=== PATIENT | male | born 1950 | race Caucasian/White ===

== ENCOUNTER 2018-12-03 19:24 | Inpatient (IN) | payer BC ==
[~2018-12-03] VITALS: Ht 177.8 cm; Wt 97.5 kg
[~2018-12-03 19:24] MED LIST: ADULT LOW DOSE81 MG PO; ADVAIR 250-501 EACH IH; AMLODIPINE-BEN1 EAC3 PO; ANDROGEL75 GM TD; BD ULTRA-FINE1 EAC2 MC; CALCIUM; CATAPRESS3 TP; CATAPRESS3 TRANSDERM; CLARITIN10 M2 PO; CLONAZEPAM 0.50.5 M1 PO; CLONAZEPAM 1 MG1 M1 PO; COMBIVENT INH; FERROUS GLUCON325 M4; FIBER CHOICE1 EACH; FIBER GUMMIES1 EACH PO; FIBERCON625 M1 PO; FLONASE 0.05%50 MCG NS; FUROSEMIDE 40 M40 M1 PO; GLUCOPHAGE1000 MG PO; GLYBURIDE 5 MG T5 MG PO; HUMALOG100 UNIT/1 SUBQ; HYDROCODON-ACE1 EACH PO; IRON PO; JANUVIA100 MG PO; KAPVAY0.1 MG PO; KEFLEX500 MG; LANTUSSOLASTAR SQ; MINOCYCLINE HC100 M2; MOM; MUCINEX600 MG PO; MULTIVITAMINS PO; NEXIUM40 MG PO; PERCOCET 5-3251 EACH; POTASSIUM99 M1; PREDNISONE 10 M10 MG PO; PROAIR HFA8.5 GM INH; SIMVASTATIN40 MG PO; SINGULAIR 10 MG10 M1 PO; SUPER B COMPLE1 EAC2 PO; SYMBICORT160 MCG/4. INH; TAMSULOSIN HCL0.4 MG PO; TERBINAFINE; TRAZODONE 150150 M1 PO; TYLENOL325 MG PO; VITAMIN D-32000 UNIT; VITAMIN D-32000 UNIT PO; ZPAK PO; [UNRECOGNIZED DRUG - OTHER]
[2018-12-03 19:32] VITALS: BP 134/61
[2018-12-03 19:48] LABS: ABSOLUTE EOSINOPHILS 0.2 thou/uL (0.0-0.7); ABSOLUTE LYMPHOCYTES 1.4 thou/uL (0.8-5.3); ABSOLUTE MONOCYTES 0.9 thou/uL (0.0-1.2); BASOPHILS 0.5 %; EOSINOPHILS 2.9 %; HEMATOCRIT 35.4 % (42.0-52.0); HEMOGLOBIN 12.2 gm/dL (14.0-18.0); LYMPHOCYTES 18.2 %; MCH 31.4 pg (26.0-34.0); MCHC 34.5 g/dL (28.0-37.0); MCV 91.1 fL (80.0-100.0); MONOCYTES 11.5 %; MPV 8.5 fl. (7.2-11.1); NUCLEATED RBCS 0 /100WBC; PLATELET COUNT* 181 thou/uL (150-400); POLYS 66.9 %; RBC 3.88 mil/uL (4.50-6.00); RDW-CV 14.9 % (10.5-14.5); WBC 7.5 thou/uL (4.0-11.0)
[2018-12-03] MEDS ORDERED: CLONIDINE HCL0.3 M3 TRANSDERM (19:48)
[2018-12-03] MEDS ORDERED: PROTONIX40 M1 PO (19:48)
[2018-12-03] MEDS ORDERED: COMBIVENT INH (19:49)
[2018-12-03] MEDS ORDERED: TRAZODONE HCL100 MG PO (19:49)
[2018-12-03] MEDS ORDERED: SYNTHROID50 MCG PO (19:50)
[2018-12-03] MEDS ORDERED: FISH OIL 1,001000 M2 PO (19:50)
[2018-12-03] MEDS ORDERED: COREG25 MG PO (19:50)
[2018-12-03 20:00] LABS: INR 0.9; PROTIME 9.7 Seconds (9.20-11.50)
[2018-12-03 20:02] LABS: BE 1.3 mmol/L (-2 to +3); PCO2 44.4 mmHg (35.0-45.0); PO2 76.7 mmHg (75.0-100.0); pH 7.394 (7.340-7.450)
[2018-12-03 20:06] LABS: ANION GAP 5 mmol/L (7-16); BUN 23 mg/dL (7-18); CALCIUM 8.7 mg/dL (8.5-10.1); CHLORIDE 104 mmol/L (98-107); CO2 31 mmol/L (21-32); CREATININE 1.4 mg/dL (0.6-1.3); GLUCOSE 243 mg/dL (70-99); POTASSIUM 4.5 mmol/L (3.5-5.1); SODIUM 140 mmol/L (136-145); TROPONIN-I LEVEL <0.06 ng/mL (<0.06)
[2018-12-03 20:08] LABS: ALBUMIN 2.6 g/dL (3.4-5.0); ALKALINE PHOSPHATASE 56 U/L (46-116); NT-PRO BRAIN NAT PEPTIDE 486 pg/mL (<300); SGOT 25 U/L (15-37); SGPT 62 U/L (30-65); TOTAL BILIRUBIN 0.5 mg/dL (<0.1-1.0); TOTAL PROTEIN 6.8 g/dL (6.4-8.2)
[2018-12-03 21:15] VITALS: BP 140/70
[2018-12-03 21:50] VITALS: BP 142/71
[2018-12-03] MEDS ORDERED: IRON325 PO (22:49)
[2018-12-03] MEDS ORDERED: POTASSIUM20 PO (22:50)
[2018-12-03 23:34] LABS: URINE BILIRUBIN NEGATIVE (Negative); URINE BLOOD NEGATIVE (Negative); URINE CLARITY CLEAR; URINE COLOR YELLOW; URINE GLUCOSE-RANDOM TRACE (Negative); URINE KETONES NEGATIVE (Negative); URINE LEUKOCYTES-REFLEX NEGATIVE (Negative); URINE NITRITE-REFLEX NEGATIVE (Negative); URINE PROTEIN NEGATIVE (Negative); URINE SPECIFIC GRAVITY 1.015 (1.005-1.030)
[2018-12-04] VITALS: BP 142/67
--- NOTE | 2018-12-04 03:34 | NUR ---
PT ARRIVED TO ROOM 211 AT 2145 STRAIGHT AFTER CTA OF CHEST FROM ER. ASSESSMENT COMPLETED CHARTED. ABLE TO MAKE NEEDS KNOWN. NO C/O PAIN OR DISCOMFORT. PUT HEART MONITOR ON, SET UP EXTENDED TUBING FOR OXYGEN, COLLECTED UA AND MRSA SWAB, PT WANTED TO SLEEP IN RECLINER LIKE HE DOES AT HOME. UP AD CONSTANCE IN ROOM. PULSE OX ON TONIGHT FOR SLEEP STUDY. IV IN LEFT HAND AND RIGHT AC FLUSH WITH MINIMAL ISSUES. PT IS RESTING AT THIS TIME. PAPERWORK COMPLETED. WILL CONTINUE TO MONITOR.
[2018-12-04 04:00] VITALS: BP 159/76
--- NOTE | 2018-12-04 05:10 | NUR ---
I STARTED NOC OX AND PT DESAT DOWN TO 85% WITHIN 5 MINUTES. IT TOOK 4L TO GET PT BACK TO 90%. PT REMAINED ON 4L.
[2018-12-04 08:10] VITALS: BP 146/70
--- NOTE | 2018-12-04 10:53 | NUR ---
RECEIVED REPORT FROM WILLIE AND ASSUMED CARE OF PT @ 8244.PT IS A/O X4,VSS,TRACING SR ON THE MONITOR.PT IS ON 4L O2 NC.RIGHT AC IV DISCONTINUED.LEFT HAND IV PATENT AND SALINE LOCKED. PT IS ANXIOUS ABOUT DIAGNOSIS BUT COOPERATIVE WITH NO C/O PAIN.PT IS UP AD CONSTANCE IN ROOM.PT LEFT RESTING IN RECLINER WITH CALL LIGHT AND FALL PRECAUTIONS IN PLACE.WILL CONTINUE TO MONITOR.
--- NOTE | 2018-12-04 12:15 | EKG ---
[place] [address] ELECTROCARDIOGRAM REPORT Name: ALMAZ WEBER Room: [address] ADM IN .R.#: [id number] Admission: 12/03/18 Attend Phys: Eleazar Valiente MD Discharge: Date of : 50 Report #: [id number] THIS REPORT FOR: //name// [facility] ED Test Date: 2018-12-03 Test Time: 19:58:19 Pat Name: ALMAZ WEBER Department: Room: [facility] Gender: M Fund Controller: AP : 1950 Requested By: Cassie Song Order Number: [id number] MD: Dusty Dorman Measurements Intervals [place] Rate: 75 P: 50 FL: 132 QRS: -54 QRSD: 95 T: 55 QT: 383 QTc: 428 Interpretive Statements Sinus rhythm Left anterior fascicular block Abnormal R-wave progression, late transition Compared to ECG 11/11/2018 17:20:10 Sinus tachycardia no longer present Electronically Signed On 12-04-2018 12:15:08 CDT by Dusty Dorman [email or web address] <ELECTRONICALLY SIGNED> By: Dusty Dorman MD, FACC 12/04/18 1215 57 57 Dusty Dorman MD, FAC /EPI
[2018-12-04 13:03] VITALS: BP 148/70
--- NOTE | 2018-12-04 16:52 | NUR ---
VSS.CARDIAC MONITORING IN PLACE WITH NO CHANGES THIS SHIFT.PT REMAINS ON 4L O2 NC.NO C/O PAIN.IV PATENT AND SALINE LOCKED.SPUTUM COLLECTED AND SENT TO THE LAB.PT TO BE NPO AT MIDNIGHT FOR CARDIAC STRESS TEST IN THE AM.PT INFORMED OF PLAN OF CARE AND COMMUNICATES UNDERSTANDING.HOURLY ROUNDING COMPLETED FOR PT SAFETY.CALL LIGHT WITHIN REACH.WILL CONTINUE TO MONITOR FOR DURATION OF SHIFT.
[2018-12-04 17:25] VITALS: BP 119/77
[2018-12-04 20:00] VITALS: BP 133/70
[2018-12-05] VITALS: BP 162/84
[2018-12-05 04:00] VITALS: BP 130/53
--- NOTE | 2018-12-05 05:33 | NUR ---
ASSUMED PT CARE AT 1930. ASSESSMENT COMPLETED CHARTED. ABLE TO MAKE NEEDS KNOWN. PT RESTING IN RECLINER AT THIS TIME. STILL C/O SOB WITH EXCERSION. NO C/O PAIN. UP AD CONSTANCE, 4L O2 ON AT THIS TIME. VSS. WILL CONTINUE TO MONITOR.
--- NOTE | 2018-12-05 08:00 | NUR ---
ASSUMED PT CARE AT 0700, PT A&O X4, UP AD CONSTANCE, NPO FOR STRESS TEST, ALL APPROPRIATE MEDS HELD UNTIL AFTER STRESS TEST. BEHAVIORAL SCHOOL COUNSELORS TRACING SINUS TAIWO, PT REMAINS ON 4-5LPM O2, LS DIMINISHED IN ALL LOBES. PT CONT ON BTX Q4 AND PRN. DENIES ANY PAIN/SOA AT THIS TIME.
--- NOTE | 2018-12-05 09:28 | NUR ---
Pt is A&O. Resides at home with his . Known to this CM from his recent hospital stay in October. Pt independent. Wears home o2. No hx of HH or SNF. Goal [place] at [place], following for disposition.
[2018-12-05 12:43] VITALS: BP 183/78
--- NOTE | 2018-12-05 13:05 | NUR ---
Nutrition: Consult for "other." BMI is 42.8. Wt: 297#, which is pt's usual wt. NPO for stress test today. Alb 2.6, prealb 18.4. H/o COPD, DM, HTN, DLD. Admitted with COPD exac. RX: metformin, lasix, fish oil. Appears at low to mild nutrition risk at this time. Diet to advance after stress test to goal of Heart Healthy with a CHO count.
[2018-12-05 16:00] VITALS: BP 142/66
--- NOTE | 2018-12-05 16:58 | CARDNUC ---
[place] [address] CARDIAC NUCLEAR IMAGING REPORT Name: ALMAZ WEBER VARUN Room: [address] IN [facility]#: [id number] Admission: 12/03/18 Attend Phys: Eleazar Valiente, Discharge: Date of : 50 Date of Service: 12/05/18 1658 Report #: [id number] THIS REPORT FOR: //name// APPROVED REPORT Imaging Protocol: Stress Tc-99m/Rest Tc-99m 2 days Study performed: 12/04/2018 12:00:00 Indication: Dyspnea Patient Location: In-Patient Room #: 211 Stress Tech: Nitza Moore Stress Nurse: Christine Kim RN NM Tech:GUILLERMINA Willingham Ht: 5 ft 10 in Wt: 297 lbs BSA: 2.47 m2 HR: 76 bpm BP: 154/66 mmHg BMI: 42.61 Medical History Medical History: COPD, peripheral edema, Dyslipidemia Medications: Carvedilol, Aspirin, Lisinopril, Amlodipine, humalog, lasix, lovenox, lantus, solu-medrol, KDur, Metformin Allergies: No known drug allergies Cardiac Risk Factors: Age, HTN, PVD, DM, Tobacco History (Former), FHX of CAD Pharmacologic Stress Pharmacologic stress test was performed by injecting Regadenoson 0.4 mg IV push over 10-15 seconds immediately followed by the intravenous injection of 34.4 mCi of Tc-99m Sestamibi. Time of stress injection: 1335 Date: 12/05/2018 Administration Route: IV Administration Site: Left Hand Gated Stress SPECT was performed 40 minutes after stress injection. The images were gated to evaluate regional wall motion and calculate left ventricular ejection fraction. Prone imaging was performed. Stress Test Details Stress Test: Pharmacologic stress testing performed using 0.4 mg of regadenoson per 5 mL given IV over 10 seconds. Reason for pharmacologic stress test: [place] [address] CARDIAC NUCLEAR IMAGING REPORT Name: ALMAZ WEBER Room: [address]#: [id number] Admission: 12/03/18 Attend Phys: Eleazar Valiente, Discharge: Date of : 50 Date of Service: 12/05/18 1658 Report #: [id number] HR Max Heart Rate (APMHR): 152 bpm Resting HR: 76 bpm Target HR (85% APMHR): 129 bpm Max HR Achieved: 953 bpm % of APMHR: 626 Recovery HR: 85 bpm HR response to stress: Normal HR response to stress BP Resting BP: 154/66 mmHg Max BP: 172/78 mmHg Recovery BP: 182/79 mmHg BP response to stress: Normal blood pressure response to stress. ECG Resting ECG: Sinus Rhythm Stress ECG: Sinus Rhythm ST Change: None Arrhythmia: None Recovery ECG: Sinus Rhythm Recovery ST Change: None Recovery Arrhythmia: None Clinical Reason for Termination: Completed protocol Stress Symptoms: None The patient tolerated Lexiscan infusion without significant symptoms. Stress ECG Conclusion The baseline 12-lead EKG shows sinus rhythm without significant ST or T wave abnormality. EKGs obtained during and post Lexiscan infusion show sinus rhythm with no significant ST or T wave changes. There were no stress-induced arrhythmias. Study Quality Study: Good Study Data Post stress, the left ventricular ejection was 65%.. Perfusion Myocardial perfusion images obtained post Lexiscan stress show uniform uptake of the radioisotope throughout the myocardium. There were no defects to [place] [address] CARDIAC NUCLEAR IMAGING REPORT Name: ALMAZ WEBER Room: [address]#: [id number] Admission: 12/03/18 Attend Phys: Eleazar Valiente, Discharge: Date of : 50 Date of Service: 12/05/18 1658 Report #: [id number] Wall Motion Gated study showed normal wall motion with normal LV systolic function. Nuclear Conclusion ECG Findings: negative for ischemia Clinical Findings: negative for ischemia Nuclear Findings: negative for ischemia Exercise Capacity: not assessed Left Ventricular Function: normal Risk Study: low Myocardial perfusion images show no defect to suggest infarct or ischemia. Left ventricular systolic function appears normal on gated studies. This is a low risk study. <Conclusion> The baseline 12-lead EKG shows sinus rhythm without significant ST or T wave abnormality. EKGs obtained during and post Lexiscan infusion show sinus rhythm with no significant ST or T wave changes. There were no stress-induced arrhythmias. <ELECTRONICALLY SIGNED> By: Dusty Dorman MD, [facility] 12/05/18 1658 57 1658 Dusty Dorman MD, FACC /INF
--- NOTE | 2018-12-05 18:49 | NUR ---
PT A&O X4, UP AD CONSTANCE. STRESS TEST COMPLETED, AWAITING RESULTS. LS DIMINISHED IN ALL LOBES, CONT ON 4-5LPM O2 VIA NC, C/O SOA WITH EXERTION. 2+ EDEMA TO BLE, EDUCATED PT ON ELEVATING FEET IN RECLINER, LASIX ON BOARD. HOURLY ROUNDING COMPLETED.
[2018-12-05 20:00] VITALS: BP 145/77
[2018-12-06] VITALS: BP 147/68
--- NOTE | 2018-12-06 07:52 | CON ---
[address] [address] CONSULTATION Name: TIAALMAZ BOND Room: [address] ADM IN .R.#: [id number] Admission: 12/03/18 Attend Phys: Eleazar Valiente MD Discharge: Date of : 50 Report #: [id number] THIS REPORT FOR: //name// CC: Eleazar Ponce DO DATE OF SERVICE: 12/04/2018 PULMONARY CONSULTATION ATTENDING PHYSICIAN: Eleazar Valiente MD. PRIMARY CARE PHYSICIAN: Boo Ponce DO. LOCATION: He is in room 211. INDICATION FOR CONSULTATION: COPD, hypoxemia, dyspnea. HISTORY OF PRESENT ILLNESS: The patient is a 68-year-old male, a remote smoker, who has had increasing cough and shortness of breath for the past 4-5 days. DICTATION ENDS HERE <ELECTRONICALLY SIGNED> By: Severiano [place] MD 12/06/18 0752 1117 [id number] [place] MD /nt
--- NOTE | 2018-12-06 07:53 | CON ---
[address] [address] CONSULTATION Name: TIAALMAZ BOND Room: [address] ADM IN M.R.#: [id number] Admission: 12/03/18 Attend Phys: Eleazar Valiente MD Discharge: Date of : 50 Report #: [id number] THIS REPORT FOR: //name// CC: Eleazar Ponce DATE OF SERVICE: 12/04/2018 ATTENDING PHYSICIAN: Eleazar Valiente MD PRIMARY CARE PHYSICIAN: Boo Ponce DO LOCATION: The patient is located in room 211. INDICATION FOR CONSULTATION: COPD, dyspnea and hypoxemia. CLINICAL SUMMARY: The patient is a 68-year-old male who was admitted through the Emergency Room Department with complaints of shortness of air for 3 or 4 days. The patient was on oxygen at 4 liters at home. He was more short of breath when he was getting up and moving around. His O2 sats were dropping in the 80s. He denied any peripheral edema. He has had some cough, yellow sputum and purulent sputum. He denies any fever, chills or sweats. He states he had his flu shot this fall. He was in [facility] on 11/11/2018 for respiratory distress and he has an appointment with our group coming up in the next 3 or 4 weeks. The patient has had increasing dyspnea on exertion. He does not walk upstairs very well. His bedroom is upstairs. His uses oxygen also. She walks upstairs to the bedroom. The patient can walk about 15 to 25 feet on level ground and is still getting more short of breath. He was on 4 liters, he desaturated and he was up to 6 liters. He has had some esophageal reflux. He denies much in the way of sinus drainage. He has seen Dr. Dexter in the office for past 4 or 5 years with his history of COPD. He has been oxygen dependent. He has not been steroid dependent, a difficult time finding out how many times he takes prednisone tapers during the year appears to be once or twice. He has had several sleep studies he tells me. He states that he has never had CPAP at home. PAST MEDICAL HISTORY: 1. He has had COPD since 2014, oxygen dependent for the last couple of years at 4 liters, on nebulizers at home 2. Diabetes mellitus, insulin-dependent. 3. Hypertension. 4. Obesity. 5. One episode of pancreatitis [place] [address] CONSULTATION Name: ALMAZ WEBER Room: [address] IN ..#: [id number] Admission: 12/03/18 Attend Phys: Eleazar Valiente MD Discharge: Date of : 50 Report #: [id number] ALLERGIES: He has no known medical allergies. OUTPATIENT MEDICATIONS: Included DuoNeb nebulizers 4 times a day. He is supposed to be on montelukast 10 mg daily. He has had a prednisone taper, the last one was dated 11/15/2018. Also on azithromycin. Also he is supposed to be on amlodipine/benazepril 5/20 mg 1 tablet daily, furosemide 40 mg b.i.d., Combivent inhaler, Respimat 1 puff 2 to 4 times a day, guaifenesin 1200 mg b.i.d., ProAir inhaler 2 puffs p.r.n., DuoNeb nebulizers 4 times a day, Symbicort 160/4.5 two puffs b.i.d. routinely, trazodone 150 mg at bedtime, levothyroxine 50 mcg daily, carvedilol 25 mg b.i.d., metformin 1000 mg b.i.d., multivitamins 1 tablet daily, insulin is noted. He was on clonidine that has been discontinued. He is on IV Solu-Medrol 62.5 mg IV b.i.d. at this time. Oxygen is up to 6 liters from 4 liters. FAMILY HISTORY: Negative for premature cardiopulmonary disease. SOCIAL HISTORY: The patient was a prior 30 or 40-pack year history of smoking. He states he quit 15 years ago. He denies any alcohol or illicit drug use. He denies any chewing tobacco at least at this time. REVIEW OF SYSTEMS: A 14-point review of systems reviewed and negative except for pertinent positives noted in the HPI. PHYSICAL EXAMINATION: GENERAL: This is a 68-year-old male in moderate distress. He tries to get up and walk to the bathroom and to the bed from his chair and he is dyspneic after 15 feet. He has some audible wheezing then. VITAL SIGNS: Blood pressure is 146/70, heart rate is 72, respirations were 20, temperature is 36.3 degrees and saturation on 6 liters is 95%. He is 5 feet 10 inches tall, weighs 135 kilograms or 290 pounds and BMI is 43. HEENT: Nares show some boggy turbinates. Oxygen is at 6 liters. Pharynx is about Mallampati score of 3. He is edentulous upper and lower. NECK: Supple without nodes. No increased jugular venous pressure around his thick lane. Neck is somewhat thick. CHEST: Shows inspiratory and expiratory wheezes with prolonged expiratory phase. Some use of accessory muscle. CARDIOVASCULAR: Regular rate and rhythm without murmur, gallop or rub. Heart rate is 72. ABDOMEN: Obese without masses or megaly. EXTREMITIES: No calf tenderness. No cyanosis, clubbing or edema. LABORATORY DATA: Hemoglobin is 12 and white count 7500. Sodium is 140, potassium 4.5, carbon dioxide is 31, BUN is 23, creatinine is 1.4 and glucose is 243. Anti-proBNP is 46. Albumin is 2.6. Troponins are negative. ABGs on 6 liters yesterday afternoon, at 7:45 p.m. show pO2 of 76, pH 7.39, pCO2 is 44, bicarbonate is 27 and O2 sats 93%. Carboxyhemoglobin is only 1.1. [place] [address] CONSULTATION Name: ALMAZ WEBER Room: [address] IN [facility]#: [id number] Admission: 12/03/18 Attend Phys: Eleazar Valiente MD Discharge: Date of : 50 Report #: [id number] chest shows COPD and hyperinflation. He has a lower lobe and upper lobe emphysematous changes with small blebs noted and chronic bronchitic changes. I do not have the PFTs from Dr. Dexter's office. IMPRESSION: 1. Moderate to moderately severe chronic obstructive pulmonary disease, oxygen dependent with downhill course. 2. Dyspnea, multifactorial. 3. Hypoxemia related to his chronic obstructive pulmonary disease, bronchospasm and bronchitis. 3. Diabetes mellitus needs better control. PLAN: Weight loss and exercise is encouraged. We will see if we can get him into pulmonary rehab with Ha[facility] here. He has a treadmill at home. I told him he can go to 1.0 to 1.5 miles an hour on 0% grade. Once he reaches 15-20 minutes, he can use 2-3 minutes at a 3% grade. His oxygen is 3-4 liters at rest and 6 liters with exertion. We will try and get him a higher flow concentrator at home per [place]. Add oral bronchodilators to see if we can help out with his cough and his wheezing and we will get him off his IV and oral steroid taper in a couple of weeks or so. Overall, prognosis is quite guarded. When he sees Dr. Anup Arshad in our office, he will get full PFTs. We may need a followup ABG and see where we are at. May need exercise oximetry in the hospital or office to see how well he is going to do on 4 to 6 liters, see if we can improve his exercise tolerance. Unfortunately, the patient told me he takes care of chicken coops in the backyard. 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 He denies any asbestos exposure, but again I told him to wear a mask while he is dealing with his chickens and chicken coops. Cleaning out the chicken coops, I do not want him to get histoplasmosis. No evidence of histoplasmosis on his chest x-ray and CAT scan. Good hygiene was encouraged. Overall, prognosis is still somewhat guarded, but hopefully some weight loss and exercise he will improve somewhat. Thanks again for allowing us to participate in this man's care. <ELECTRONICALLY SIGNED> By: Severiano [place] MD 12/06/18 0753 1128 [id number] Robbins MD /nt
--- NOTE | 2018-12-06 08:00 | NUR ---
ASSUMED PT CARE AT 0700, PT UP IN RECLINER, A&O X4, UP AD CONSTANCE, VSS. PORTABLE TRACK CREW CHIEF TRACING SINUS TAIWO, LS DIMINISHED IN BILATERAL LOWER LOBES, COARSE IN BILATERAL UPPER LOBES. CONT ON PT/OT AND WILL HAVE SECOND HALF OF STRESS TEST THIS SHIFT, APPROPRIATE MEDS HELD. PT EMOTIONAL THIS AM AND REQUESTING MORE INFO ON ON REHAB, CASE MANAGEMENT AND DR NOTIFIED. WILL CONT POC.
--- NOTE | 2018-12-06 08:40 | NUR ---
RESTING WELL IN RECLINER. REPORT GIVEN TO ONCOMING NURSE.
[2018-12-06 12:49] VITALS: BP 143/64
--- NOTE | 2018-12-06 16:02 | NUR ---
RESTAURANT EXPEDITOR SPOKE TO THE PATIENT AND HIS SPOUSE TO DISCUSS DISCHARGE PLANNING NEEDS AND SNF AT D/. PATIENT INFORMS THAT HE IS OPEN TO SNF AT D/C AT [facility]. D/C SERVICE GREETER CALLED AND LEFT A MESSAGE WITH ADMISSIONS AT [facility] AND FAXED THE PATIENT'S FACESHEET AND CLINICAL INFO. D/C SERVICE GREETER AWAITING A RETURN CALL TO INFORM OF RECEIPT OF REFERRAL AND ABILITY TO ACCEPT THE PATIENT AT D/. CM WILL REMAIN AVIALABLE TO ASSIST AND FOLLOW NEEDED.
[2018-12-06 17:41] VITALS: BP 148/70
--- NOTE | 2018-12-06 18:22 | NUR ---
PT UP AD CONSTANCE, VSS, REMAINS ON 4LPM VIA [place], STATES FEELS "100% BETTER THAN WHEN HE GOT HERE". PM HUMALOG AND S/S HUMALOG HELD PER PT REQUEST D/T BS 86. PT MET WITH AND HAS AGREED TO GO TO REHAB FOR STRENGTHENING. STRESS TEST NEG, SHOWS EF 65%, DOPPLER OF BLE NEG FOR DVT. HOURLY ROUNDING COMPLETED.
[2018-12-07] VITALS: BP 163/80
[2018-12-07 04:00] VITALS: BP 142/64
[2018-12-07 05:32] LABS: HEMATOCRIT 37.7 % (42.0-52.0); HEMOGLOBIN 12.8 gm/dL (14.0-18.0); MCH 30.4 pg (26.0-34.0); MCHC 33.9 g/dL (28.0-37.0); MCV 89.5 fL (80.0-100.0); MPV 8.7 fl. (7.2-11.1); NUCLEATED RBCS 0 /100WBC; PLATELET COUNT* 268 thou/uL (150-400); RBC 4.21 mil/uL (4.50-6.00); WBC 10.3 thou/uL (4.0-11.0)
[2018-12-07 06:01] LABS: ALBUMIN 2.6 g/dL (3.4-5.0); CALCIUM 8.8 mg/dL (8.5-10.1); POTASSIUM 4.1 mmol/L (3.5-5.1); TOTAL BILIRUBIN 0.3 mg/dL (<0.1-1.0); TOTAL PROTEIN 6.6 g/dL (6.4-8.2)
--- NOTE | 2018-12-07 06:01 | NUR ---
RECEIVED REPORT AND ASSUMED CARE AT 1900. VSS. CARDIAC MONITORING IN PLACE. PT DENIES COMPLAINTS OF PAIN. ASSESSMENT COMPLETED CHARTED. PT UP AD CONSTANCE IN ROOM, 4L NC. BED LOCKED IN LOWEST POSITION, CALL LIGHT WITHIN REACH. HOURLY ROUNDING COMPLETED AND ALL NEEDS MET.
[2018-12-07 06:26] LABS: ABSOLUTE LYMPHOCYTES 0.8 thou/uL (0.8-5.3); ABSOLUTE MONOCYTES 0.5 thou/uL (0.0-1.2); ANISOCYTOSIS 1+; PLATELET ESTIMATE ADEQUATE; POIKILOCYTOSIS 1+
[2018-12-07 08:14] VITALS: BP 128/58
--- NOTE | 2018-12-07 12:10 | NUR ---
Pt is too high level for skilled, Pt will dc home today. Pt declined HH, but is interested in pulm rehab. CM updated [facility] pulm rehab spec. CM updated nurse. Per , Pt may need a bigger concentrator, waiting on ex ox results to determine need. in room and will transport. Pt has a portable tank in the room.
[2018-12-07 12:51] VITALS: BP 148/67
[2018-12-07] MEDS ORDERED: AUGMENTIN 875-1 EACH PO (12:53)
[2018-12-07] MEDS ORDERED: PREDNISONE 10 M10 MG PO (12:54)
[2018-12-07 13:54] VITALS: BP 148/67
--- NOTE | 2018-12-07 14:21 | NUR ---
I HAVE REVIEWED THE STUDENT'S CHARTING.
--- NOTE | 2018-12-07 14:51 | NUR ---
RECEIVED DISCHARGE ORDERS PER DR DUQUE. IV DISCONTINUED. CORN HUSKER MACHINE OPERATOR REMOVED AND RETURNED TO NURSE'S DESK. RESPIRATORY IN TO WALK PATIENT FOR INCREASE O2 DEMAND AND NEW CONCENTRATOR AT HOME. NEW SCRIPTS GIVEN WITH MED INFORMATION SHEETS. EDUCATED ON F/U APPT WITH HIS PRIMARY AND HIS PULMONARY DOCTOR. PATIENT DENIED ANY QUESTIONS OR CONCERNS. LEAVING VIA WHEELCHAIR ACCOMPANIED BY NURSING STAFF.
--- NOTE | 2018-12-13 16:04 | CON ---
[address] [address] CONSULTATION Name: TIAALMAZ BOND Room: [address] IN M.R.#: [id number] Admission: 12/03/18 Attend Phys: Eleazar Valiente MD Discharge: 12/07/18 Date of : 50 Report #: [id number] THIS REPORT FOR: //name// CC: Dr. Funmilayo Ponce DO INDICATION: Dyspnea on exertion. HISTORY OF PRESENT ILLNESS: The patient is a very pleasant 68-year-old gentleman with chronic lung disease who I have been asked to evaluate for possible cardiac cause for progressive dyspnea as well. He does have multiple cardiac risk factors including severe peripheral vascular disease, hypertension, dyslipidemia, and family history of coronary artery disease. He also has type 2 diabetes mellitus. He presented to the hospital with increasing dyspnea on exertion and lower extremity edema. Over the past couple of months he has had significant decline in his lung function with a recent episode of bronchitis that became pneumonia. He is chronically on oxygen. At present, he states he gets dyspneic with walking across the room. I cannot get a good history for orthopnea. He does occasionally awaken short of breath. He is not having ofe chest pain. He is without other cardiac complaint at this time. PAST MEDICAL HISTORY: 1. Peripheral vascular disease. 2. Carotid vascular disease. 3. Hypertension. 4. Hyperlipidemia. 5. Chronic obstructive pulmonary disease, oxygen requiring. FAMILY HISTORY: Positive for coronary artery disease. SOCIAL HISTORY: The patient smokes tobacco daily. He denies use of alcohol. ALLERGIES: TAPE. HOME MEDICATIONS: Amlodipine/benazepril 5/20 one daily, furosemide 40 mg b.i.d., Combivent inhaler 1 puff q.i.d., Lantus 50 units b.i.d., guaifenesin 1200 mg daily, albuterol inhaler as directed, Symbicort 160/4.5 as directed, clonazepam 0.5 mg at bedtime p.r.n., AndroGel 75 grams transdermal daily, Lispro insulin 10 units subcutaneous t.i.d., Protonix 40 mg daily, trazodone 150 mg daily, Combivent inhaler 1-2 puffs q.i.d., fish oil 1000 mg daily, Synthroid 50 mcg daily, carvedilol 25 mg b.i.d., metformin 1000 mg b.i.d., Flomax 0.4 mg daily, Flonase nasal spray 2 sprays daily, aspirin 81 mg daily, vitamin B complex one tablet daily, multivitamin daily, Tylenol p.r.n., [place] [address] CONSULTATION Name: TIAALMAZ BOND Room: [address]#: [id number] Admission: 12/03/18 Attend Phys: Eleazar Valiente MD Discharge: 12/07/18 Date of : 50 Report #: [id number] PHYSICAL EXAMINATION: VITAL SIGNS: Blood pressure 146/70, pulse 71 and regular. GENERAL: Morbidly obese white male, in no distress. Mood and affect appropriate. HEENT: The patient is wearing glasses. O2 nasal cannula in place. Extraocular muscles intact. Mucous membranes moist. NECK: Shows no jugular venous distention. I do not appreciate bruit. CHEST: Reveals diminished breath sounds without wheezes or rales. CARDIAC: Reveals a distant S1 and S2 without gallop or murmur. ABDOMEN: Reveals a protuberant abdomen, soft and nontender. EXTREMITIES: Shows 2+ pitting edema to the knees bilaterally. SKIN: Dry. LABORATORY DATA: Reviewed. Sodium 140, potassium 4.5, chloride 104, bicarbonate 31, BUN 23, creatinine 1.4, serum glucose 243. LFTs are within normal limits. Troponin less than 0.06. NT-proBNP 486. Coags are within normal limits. White blood cell count 7.5, hemoglobin 12.2, platelet count 181,000. DIAGNOSTIC DATA: A 12-lead EKG shows sinus rhythm with left anterior fascicular block. There are no acute ST or T-wave abnormalities noted. Chest x-ray shows poor inspiration with increased basilar densities. IMPRESSION AND RECOMMENDATIONS: 1. Dyspnea, multifactorial. The patient does have significant lung disease. He has deconditioning. We will obtain stress testing to evaluate for possible coronary ischemia as a contributing component. Further intervention will be pending the results of that study. 2. Hypertension, adequately controlled on current cardiac regimen. 3. Dyslipidemia. Recommend goal LDL of 70 or less. 4. Diabetes. Treatment per primary physician. 5. Chronic obstructive pulmonary disease, on steroid inhaler, other inhalers and supplemental oxygen. 6. Peripheral edema likely due to some venous insufficiency. His NT-proBNP is not significantly elevated to suggest acute heart failure. <ELECTRONICALLY SIGNED> By: Dusty Dorman MD, FACC 12/13/18 1604 1159 [id number] Dorman MD, FACC /nt
== END 2018-12-07 15:10 | disposition home or self-care (01) | DRG 177 ==
LOC: M.ERS 19:24 → M.2W 20:30 → M.TBA-ER 20:30 → M.2W 21:27
PROVIDERS: Emergency Medicine; Internal Medicine
DX: J15.6 Pneumonia due to other Gram-negative bacteria (principal); J96.21 Acute and chronic respiratory failure with hypoxia; N17.9 Acute kidney failure, unspecified; J44.1 Chronic obstructive pulmonary disease with (acute) exacerbation; I69.354 Hemiplegia and hemiparesis following cerebral infarction affecting left non-dominant side; I10 Essential (primary) hypertension; E11.51 Type 2 diabetes mellitus with diabetic peripheral angiopathy without gangrene; E78.5 Hyperlipidemia, unspecified; F17.220 Nicotine dependence, chewing tobacco, uncomplicated; E66.9 Obesity, unspecified; Z68.30 Body mass index [BMI] 30.0-30.9, adult; Z86.14 Personal history of Methicillin resistant Staphylococcus aureus infection; Z79.4 Long term (current) use of insulin; Z79.82 Long term (current) use of aspirin; Z79.899 Other long term (current) drug therapy; Z82.49 Family history of ischemic heart disease and other diseases of the circulatory system

== ENCOUNTER → 2019-01-17 | Outpatient (CLI) | payer BC ==
[~2019-01-17] MED LIST changes: +AUGMENTIN 875-1 EACH PO; +CLONIDINE HCL0.3 M3 TRANSDERM; +COREG25 MG PO; +FISH OIL 1,001000 M2 PO; +IRON325 PO; +POTASSIUM20 PO; +PROTONIX40 M1 PO; +SYNTHROID50 MCG PO; +TRAZODONE HCL100 MG PO
--- NOTE | 2019-01-17 14:07 | 2DMMODE ---
[place] [address] 2 D/M-MODE ECHOCARDIOGRAM Name: ALMAZ WEBER Room: [facility]#: [id number] Admission: 01/17/19 Attend Phys: Boo Ponce Discharge: Date of : 50 Date of Service: 01/17/19 1407 Report #: [id number] THIS REPORT FOR: //name// APPROVED REPORT Study performed: 01/17/2019 12:38:42 EXAM: Comprehensive 2D, Doppler, and color-flow Echocardiogram Patient Location: Out-Patient BSA: 2.48 HR: 69 bpm BP: 153/70 mmHg Other Information Study Quality: Good Indications Peripheral Edema 2D Dimensions IVSd: 13.44 (7-11mm) LVOT Diam: 20.02 (18-24mm) LVDd: 48.98 mm PWd: 11.82 (7-11mm) Ascending Ao: 33.10 (22-36mm) LVDs: 28.05 (25-40mm) Aortic Root: 27.55 mm Volumes Left Atrial Volume (Systole) LA ESV Index: 10.40 mL/m2 Aortic Valve AoV Peak Ru.: 1.84 m/s AO Peak Gr.: 13.53 mmHg LVOT Max P.29 mmHg AO Mean Gr.: 7.03 mmHg LVOT Mean P.42 mmHg LVOT Max V: 1.44 m/s AO V2 VTI: 36.47 cm LVOT Mean V: 0.83 m/s TIFFANIE (VTI): 2.69 cm2 LVOT V1 VTI: 31.15 cm Mitral Valve E/A Ratio: 0.75 MV Decel. Time: 223.77 ms MV E Max Ru.: 0.66 m/s MV PHT: 64.89 ms MVA (PHT): 3.39 [place]2 [place] [address] 2 D/M-MODE ECHOCARDIOGRAM Name: ALMAZ WEBER [facility] [id number] Admission: 01/17/19 Attend Phys: Boo Ponce Discharge: Date of : 50 Date of Service: 01/17/19 1407 Report #: [id number] TDI E/Lateral E': 9.43 E/Medial E': 13.20 Medial E' Ru.: 0.05 m/s Lateral E' Ru.: 0.07 m/s Pulmonary Valve PV Peak Ru.: 1.07 m/s PV Peak Gr.: 4.57 mmHg Tricuspid Valve RAP Estimate: 5.00 mmHg TR Peak Gr.: 19.79 mmHg RVSP: 24.79 mmHg PA Pressure: 24.79 mmHg Left Ventricle The left ventricle is normal size. There is normal LV segmental wall motion. Mild concentric left ventricular hypertrophy. Left ventricular systolic function is normal. The left ventricular ejection fraction is within the normal range. LVEF is 65%. Grade I - abnormal relaxation pattern. Right Ventricle The right ventricle is normal size. The right ventricular systolic function is normal. Atria Left atrium is borderline dilated. The right atrium size is normal. Aortic Valve Mild aortic valve sclerosis. Mild aortic regurgitation. There is mild valvular stenosis. Mitral Valve The mitral valve is normal in structure. There is no mitral valve regurgitation noted. No evidence of mitral valve stenosis. Tricuspid Valve The tricuspid valve is normal in structure. Mild tricuspid regurgitation. Pulmonic Valve The pulmonary valve is normal in structure. There is no pulmonic valvular regurgitation[place] [address] 2 D/M-MODE ECHOCARDIOGRAM Name: ALMAZ WEBER Room: [facility]#: [id number] Admission: 01/17/19 Attend Phys: Boo Ponce Discharge: Date of : 50 Date of Service: 01/17/19 1407 Report #: [id number] The aortic root is normal in size. IVC is normal in size and collapses >50% with inspiration. Pericardium There is no pericardial effusion. <Conclusion> LVEF is 65%. There is normal LV segmental wall motion. There is mild aortic valvular stenosis. Mild aortic regurgitation. Left atrium is borderline dilated. Mild tricuspid regurgitation. Grade I - abnormal relaxation pattern. Mild concentric left ventricular hypertrophy. <ELECTRONICALLY SIGNED> By: Finesse Mello MD, FACC 01/17/19 140 06 06 Finesse Mello MD, FACC /INF
== END ==
LOC: M.CRD 12:18
DX: I08.2 Rheumatic disorders of both aortic and tricuspid valves (principal); I25.10 Atherosclerotic heart disease of native coronary artery without angina pectoris; J44.9 Chronic obstructive pulmonary disease, unspecified; E11.9 Type 2 diabetes mellitus without complications; I10 Essential (primary) hypertension; E66.9 Obesity, unspecified; Z88.8 Allergy status to other drugs, medicaments and biological substances; Z83.3 Family history of diabetes mellitus; Z82.49 Family history of ischemic heart disease and other diseases of the circulatory system; Z82.5 Family history of asthma and other chronic lower respiratory diseases; Z87.891 Personal history of nicotine dependence; Z82.61 Family history of arthritis; Z79.84 Long term (current) use of oral hypoglycemic drugs